=== PATIENT | male | born 1960 | race Caucasian/White ===

== ENCOUNTER 2016-04-23 09:40 | Emergency (ER) | payer OTHER ==
[~2016-04-23] VITALS: Wt 89.0 kg
[~2016-04-23 09:40] MED LIST: CEPH-443 PO; CIPR500T4 PO; DIPH25CA6 PO
[2016-04-23] MEDS ORDERED: MUPI22OI2 TOP (10:26)
[2016-04-23] MEDS ORDERED: DIPHTH/TET/ACEL PERTUSS (ADULT) 0.5 ML VIAL IM* ONE (10:30)
--- NOTE | 2016-04-23 10:39 | ERD ---
ER Documentation Chief Complaint Date/Time DATE: 04/23/16 TIME: 10:31 Chief Complaint left lower leg lac for 4 days. no bleeding noted. HPI Patient is a 55-year-old male with a past medical history of diabetes, hypertension, stroke who presents to the emergency department with a laceration to left lower leg after tripping on a step. Patient denies head trauma. Patient denies any loss of consciousness. Patient states his laceration occurred 4 days ago. Patient does not recall his last tetanus shot. Patient denies any fevers, chills, nausea, vomiting, dizziness or loss of consciousness.. Patient states the affected area is erythematous however he denies any active bleeding or purulent discharge. He states he has been cleaning the affected area with water and putting gauze on it. Patient requesting that his blood sugar be checked given that he does not have a machine at home. ROS All systems reviewed and are negative except as per history of present illness. Medications Home Meds Active Scripts Mupirocin* (Bactroban*) 2% -22 Gram Oint...g., 1 APPLIC TOP BID for 7 Days, EA Prov:JESUS MIDDLETON PA-C 04/23/16 Diphenhydramine Hcl (Benadryl) 25 Mg Cap, 25 MG PO Q6, #[address] or operate heavy machinery while taking this medication, it makes you sleepy Prov:MARIAH JOHNSON PA-C 10/26/15 Cephalexin* (Keflex*) 500 Mg Capsule, 500 MG PO QID for 7 Days, CAP Prov:MARIAH JOHNSON PA-C 10/26/15 Ciprofloxacin Hcl* (Ciprofloxacin Hcl*) 500 Mg Tablet, 500 MG PO BID for 10 Days , TAB Prov:ALEXIA JAMA PA-C 10/07/14 Diphenhydramine Hcl* (Diphenhydramine Hcl*) 25 Mg Capsule, 25 MG PO Q6 Y for ITCHING, #20 CAP Prov:ALEXIA JAMA PA-C 10/07/14 Reported Medications [Unknown] No Conflict Check 08/17/10 Allergies Allergies: Coded Allergies: No Known Allergies (Verified Allergy, Mild, 10/07/14) PMhx/Soc History of Surgery: Yes (APPENDECTOMY, NASAL SX) Anesthesia Reaction: No Hx Neurological Disorder: No Hx Respiratory Disorders: No Hx Cardiac Disorders: Yes (HTN) Hx Psychiatric Problems: No Hx Miscellaneous Medical Probl: Yes (TAKES SLEEPING PILLS, dm) Hx Alcohol Use: Yes Hx Substance Use: Yes (marijuana 1 x week) Hx Tobacco Use: Yes (1 pack a day) Smoking Status: Current some day smoker FmHx Family History: No diabetes Physical Exam Vitals Vital Signs Date Time Temp Pulse Resp B/P Pulse Ox O2 Delivery O2 Flow Rate FiO2 04/23/16 09:43 98.9 80 21 109/69 98 Physical Exam GENERAL: Well-developed, well-nourished male. Appears in no acute distress. HEAD: Normocephalic, atraumatic. EYES: Pupils are equally reactive bilaterally. EOMs grossly intact. No conjunctival erythema. ENT: Moist mucous membranes. No uvula deviation. No kissing tonsils. NECK: Supple. No meningismus. Normal range of motion of the neck. LUNG: Clear to auscultation bilaterally. No rhonchi, wheezing, rales or coarse breath sounds. HEART: Regular rate and rhythm. No murmurs, rubs or gallops. ABDOMEN: No scars, ecchymosis or rashes noted. Soft, nontender, and nondistended. Positive bowel sounds in all four quadrants. No rebound tenderness , no guarding. (-) McBurney's point tenderness. No CVA tenderness. BACK: No midline tenderness. EXTREMITIES: Equal pulses bilaterally. No peripheral clubbing, cyanosis or edema. No unilateral leg swelling. NEUROLOGIC: Alert and oriented. Moving all four extremities without any difficulty. Normal speech. Steady gait. SKIN: Normal color. Warm and dry. 3 cm open laceration with surrounding erythema noted to the patient's left lower leg. No active bleeding. No active discharge. No lymphatic streaking. No warmth or swelling noted. Results 24 hrs Laboratory Tests Test 04/23/16 10:33 Bedside Glucose 62mg/dL Current Medications Medications (Trade) Dose Ordered Sig/Luz Maria Route PRN Reason Start Time Stop Time Status Last Admin Dose Admin Diphtheria/ Tetanus/Acell Pertussis (Adacel) 0.5 ml ONCE ONCE IM* 04/23/16 10:30 04/23/16 10:31 DC Procedures/MDM MEDICAL DECISION MAKING: This is a 55-year-old male with a history of diabetes who presents with a laceration that occurred 4 days ago. Vital signs were reviewed. Patient was afebrile. The wound was cleansed thoroughly. Given that the laceration occurred over 4 days ago, there is no indication for sutures at this time. Patient's laceration with cleansed by it service technician. Patient's glucose was noted to be 62. Patient stated that he took his diabetes medication however did not eat prior to arriving to the ER. Patient was given juice and crackers here in the emergency department. Patient was given his tetanus vaccination here in the ED. At this time, the patient's presentation is most consistent with healing laceration. There is no suggestion for infection at this time. Low suspicion for cellulitis or abscess formation. Low suspicion for hypoglycemia at this time given that patient denies any dizziness, nausea, vomiting, tremors , chills or loss of consciousness. PRESCRIPTIONS: Mupirocin DISCHARGE: At this time, the patient is stable for discharge and outpatient management. Post-procedural wound care was discussed with the patient. Patient was advised to eat when taking his diabetes medication to avoid hypoglycemia. I have instructed the patient to promptly return to the ER for any new or worsening symptoms including increasing pain, fever, warmth, redness or swelling. The patient and/or family expressed understanding of and agreement with this plan. All questions were answered. Home care instructions were provided. Departure Diagnosis: Primary Impression: Laceration Condition: Stable Patient Instructions: Laceration, All Referrals: [facility] YOU HAVE RECEIVED A MEDICAL SCREENING EXAM AND THE RESULTS INDICATE THAT YOU DO NOT HAVE A CONDITION THAT REQUIRES URGENT TREATMENT IN THE EMERGENCY DEPARTMENT. FURTHER EVALUATION AND TREATMENT OF YOUR CONDITION CAN WAIT UNTIL YOU ARE SEEN IN YOUR DOCTORS OFFICE WITHIN THE NEXT 1-2 DAYS. IT IS YOUR RESPONSIBILITY TO MAKE AN APPOINTMENT FOR FOLOW-UP CARE. IF YOU HAVE A PRIMARY DOCTOR --you should call your primary doctor and schedule an appointment IF YOU DO NOT HAVE A PRIMARY DOCTOR YOU CAN CALL OUR PHYSICIAN REFERRAL HOTLINE AT IF YOU CAN NOT AFFORD TO SEE A PHYSICIAN YOU CAN CHOSE FROM THE FOLLOWING FORMERLY [facility], [facility] [address] [facility] [address] [facility] [address] [facility] [address] [facility] [address] [facility]. [facility] [address] [facility] [place]. [facility] YOU HAVE RECEIVED A MEDICAL SCREENING EXAM AND THE RESULTS INDICATE THAT YOU DO NOT HAVE A CONDITION THAT REQUIRES URGENT TREATMENT IN THE EMERGENCY DEPARTMENT. FURTHER EVALUATION AND TREATMENT OF YOUR CONDITION CAN WAIT UNTIL YOU ARE SEEN IN YOUR DOCTORS OFFICE WITHIN THE NEXT 1-2 DAYS. IT IS YOUR RESPONSIBILITY TO MAKE AN APPOINTMENT FOR FOLOW-UP CARE. IF YOU HAVE A PRIMARY DOCTOR --you should call your primary doctor and schedule and appointment IF YOU DO NOT HAVE A PRIMARY DOCTOR YOU CAN CALL OUR PHYSICIAN REFERRAL HOTLINE AT . IF YOU CAN NOT AFFORD TO SEE A PHYSICIAN YOU CAN CHOSE FROM THE FOLLOWING [facility] INSTITUTIONS: [facility] [id number] [place] [address] [facility] [address] [place] [address] [facility] + [facility] [address] [place] [address] Additional Instructions: Call your primary care doctor TOMORROW for an appointment during the next 1-2 days.See the doctor sooner or return here if your condition worsens before your appointment time. JESUS MIDDLETON PA-C Apr 23, 2016 10:39 JESUS MIDDLETON PA-C Apr 23, 2016 10:39
== END 2016-04-23 11:00 | disposition home or self-care (01) ==
LOC: FTE 09:40
DX: S81.812A Laceration without foreign body, left lower leg, initial encounter (principal); I10 Essential (primary) hypertension; E11.9 Type 2 diabetes mellitus without complications; F17.210 Nicotine dependence, cigarettes, uncomplicated; W18.40XA Slipping, tripping and stumbling without falling, unspecified, initial encounter; Y92.9 Unspecified place or not applicable; Z23 Encounter for immunization
CPT/HCPCS: 82962; 90471; 90715; Z7502